=== PATIENT | female | born 1965 | race Caucasian/White ===

== ENCOUNTER 2017-06-13 05:04 | Emergency (ER) | payer MEDICAID ==
[~2017-06-13] VITALS: Ht 154.9 cm; Wt 81.8 kg
[~2017-06-13 05:04] MED LIST: EXCEDRIN ES PO; MOBIC 7.5MG7.5 MG PO; NASONEX SPRAY17 GM NS; NEXIUM 20MG20 MG PO; PAXIL 10MG10 MG PO; SINGULAIR 110 MG/TAB PO; TOPROL XL 25MG25 MG PO; TUMS500 MG; ZYRTEC 10MG10 MG PO
[2017-06-13] MEDS ORDERED: PROAIR HFA0.09 MG/AC IH (05:15)
[2017-06-13] MEDS ORDERED: ALBUTEROL SULFAT3 M3 (05:15)
[2017-06-13 05:16] VITALS: BP 140/75; TEMP 97
[2017-06-13] MEDS ORDERED: PROBIOTIC ACID1 EAC3 PO (05:22)
[2017-06-13] MEDS ORDERED: CELEXA40 MG PO (05:22)
[2017-06-13 05:43] LABS: BASO # 0.1 (0.0-0.2); BASO % 0.6 % (0.0-2.0); EOS # 0.4 (0.0-0.7); GRAN % 75.5 % (42.2-75.2); LYMPH # 1.9 (1.2-3.4); LYMPH % 15.6 % (20.0-51.0); MEAN CELL VOLUME 76 fl (80.0-100.0); MEAN CORPUSCULAR HGB CONC 31 g/dl (33.0-37.0); MEAN PLATELET VOLUME 10.3 fl (7.4-10.4); MONO # 0.6 (0.1-0.6); PLATELET COUNT 283 K/mm3 (130-400); RED BLOOD COUNT 4.44 M/mm3 (4.10-5.30); REDCELL DISTRIBUTION WIDTH-CV 15.9 % (11.5-14.5)
[2017-06-13 05:56] LABS: HEMATOCRIT 33.6 % (37.0-47.0); HEMOGLOBIN 10.4 g/dl (12.5-16.0); MEAN CORPUSCULAR HEMOGLOBIN 23 pg (27.0-31.0)
[2017-06-13] MEDS ORDERED: IPRATROPIUM BROM3 M1 IH (06:09)
[2017-06-13] MEDS ORDERED: CHERATUSSIN AC240 ML PO (06:47)
[2017-06-13 07:28] VITALS: PULSE 86
== END 2017-06-13 07:28 | disposition home or self-care (01) ==
LOC: COL.ER 05:04
PROVIDERS: Family Medicine
DX: J45.901 Unspecified asthma with (acute) exacerbation (principal); R55 Syncope and collapse
CPT/HCPCS: J1040